=== PATIENT | male | born 1990 | race Caucasian/White ===

== ENCOUNTER 2020-04-03 13:41 | Emergency (ER) | payer MEDICAID ==
[~2020-04-03] VITALS: Ht 167.6 cm; Wt 93.0 kg
[2020-04-03 14:13] VITALS: BP 125/101
--- NOTE | 2020-04-03 14:30 | NUR ---
PT MOVED TO BED 12 VIA W/C.
[2020-04-03] MEDS ORDERED: KETOROLAC 60 MG/2 ML VIAL IM ONE (14:35)
--- NOTE | 2020-04-03 14:35 | NUR ---
Note undone in EDM - 04/03/20 at 1510 by ISAC 29 YO F BIB SELF WITH C/C OF BILATERAL LEG PAIN. PT STATES HE VISITED A CLINIC FOR RIGHT LEG PAIN ON 04/02. PT STATES PAIN WORSEN TODAY AND MOVED TO HANDS AND KNEES. PT STATES PAIN IS 10/10 FOR BILATERAL LEG, HAND, AND KNEES. PEDAL PULSES IN TACT AND CAPILLARY REFILL IMMEDIATE. PT IS COOL TO THE TOUCH TO BILATERAL LOWER EXTREMITIES, HANDS, AND KNEES. PT DENIED CHEST PAIN, SHORTNESS OF BREATH, DIZZINESS, BLURRY VISION, N/V. PT PLACED IN POSITION OF COMFORT. BED LOCKED TO LOWEST POSITION. SIDE RAILS X 2 FOR PT SAFETY. CALL LIGHT WITHIN REACH. PMH: DENSHIRLENE RAMESH MEDS: DENIES
--- NOTE | 2020-04-03 14:35 | NUR ---
29 YO F BIB SELF WITH C/C OF BILATERAL LEG PAIN. PT STATES PAIN STARTED ON 03/31 TO RIGHT LEG. PT REPORTS HE VISITED A CLINIC FOR RIGHT LEG PAIN ON 04/01. PT STATES PAIN WORSEN ON 04/02 AND PROGRESSED TO HIS HANDS AND KNEES. PT STATES PAIN IS 10/10 FOR BILATERAL LEG, HAND, AND KNEES. PEDAL PULSES INTACT AND CAPILLARY REFILL IMMEDIATE. PT IS COOL TO THE TOUCH TO BILATERAL LOWER EXTREMITIES, HANDS, AND KNEES. WARMTH NOTED UPON PALPATION TO BILATERAL FEET. PT DENIES CHEST PAIN, SHORTNESS OF BREATH, DIZZINESS, BLURRY VISION, N/V. PT PLACED IN POSITION OF COMFORT. BED LOCKED TO LOWEST POSITION. SIDE RAILS X 2 FOR PT SAFETY. CALL LIGHT WITHIN REACH. PMH: DENIES NKA MEDS: DENIES
--- NOTE | 2020-04-03 14:37 | NUR ---
ULTRASOUND AT BEDSIDE
[2020-04-03 16:02] VITALS: BP 135/93
--- NOTE | 2020-04-03 16:02 | NUR ---
Patient discharged with v/s stable. Written and verbal after care instructions given and explained. Patient alert, oriented and verbalized understanding of instructions. Wheel Chair Assisted with to car. All questions addressed prior to discharge. ID band removed. Patient advised to follow up with PMD. Rx of Keflex, Motrin, [place] 5mg-325mg Tablet given. Patient educated on indication of medication including possible reaction and side effects. Opportunity to ask questions provided and answered.
== END 2020-04-03 16:02 | disposition home or self-care (01) ==
LOC: MED 13:41
DX: L03.115 Cellulitis of right lower limb (principal); F17.200 Nicotine dependence, unspecified, uncomplicated
CPT/HCPCS: 93971; 96372; 99284; J1885

== ENCOUNTER 2020-04-10 12:49 | Emergency (ER) | payer MEDICAID ==
[~2020-04-10] VITALS: Ht 167.6 cm; Wt 95.3 kg
[2020-04-10 13:09] VITALS: BP 133/87
--- NOTE | 2020-04-10 13:17 | NUR ---
29 Y/M PRESENTS TO ED FOR R CALF PAIN, AND KNEE PAIN. PT WAS SEEN LAST WEEK AND GIVEN STEROIDS, HYDORCODONE AND MOTRIN. PT REPORTS WORSENING PAIN /. DENIES ANY RECENT INJURY OR TRAUMA. PMH- DENIES NKDA
[2020-04-10] MEDS: KETOROLAC 60 MG/2 ML VIAL IM ONE (13:33)
[2020-04-10 14:12] LABS: BASOPHILS % (AUTO) 0.4 % (0.0-2.0); EOSINOPHILS # (AUTO) 0.1 K/uL (0-0.4); EOSINOPHILS % (AUTO) 0.6 % (0.0-4.0); HEMATOCRIT 43.6 % (36-52); HEMOGLOBIN 15.1 g/dL (12.0-18.0); LYMPHOCYTES # (AUTO) 1.1 K/uL (2.0-11.5); LYMPHOCYTES % (AUTO) 11.1 % (20.5-51.1); MEAN CORPUSCULAR HEMOGLOBIN 33 pg (27-31); MEAN CORPUSCULAR HGB CONC 35 g/dL (33-37); MEAN CORPUSCULAR VOLUME 94.2 fL (80-94); MONOCYTES # (AUTO) 0.9 K/uL (0.8-1.0); MONOCYTES % (AUTO) 8.4 % (1.7-9.3); NEUTROPHILS # (AUTO) 8.1 K/uL (1.8-7.7); NEUTROPHILS % (AUTO) 79.5 % (42.2-75.2); PLATELET COUNT (AUTO) 395 K/uL (140-450); RED BLOOD CELL COUNT(AUTO) 4.63 MIL/uL (4.20-6.10); RED CELL DISTRIBUTION WIDTH 12.2 % (11.6-13.7); WHITE BLOOD COUNT (AUTO) 10.1 K/uL (4.8-10.8)
[2020-04-10] MEDS: HYDROcodone/APAP 5/325 MG 1 TAB TAB PO ONE (14:50)
[2020-04-10 15:24] VITALS: BP 133/87
--- NOTE | 2020-04-10 15:24 | NUR ---
Patient discharged with v/s stable. Written and verbal after care instructions given and explained. Patient alert, oriented and verbalized understanding of instructions. Wheel Chair Assisted with to home. All questions addressed prior to discharge. ID band removed. Patient advised to follow up with PMD. Rx of BACTRIM, PREDNISONE, AND TRAMADOL given. Patient educated on indication of medication including possible reaction and side effects. Opportunity to ask questions provided and answered.
== END 2020-04-10 15:24 | disposition home or self-care (01) ==
LOC: MED 12:49
DX: M25.561 Pain in right knee (principal)
CPT/HCPCS: 36415; 84550; 85025; 96372; 99283; J1885

== ENCOUNTER 2020-04-18 12:29 | Emergency (ER) | payer MEDICAID ==
[~2020-04-18] VITALS: Ht 170.2 cm; Wt 81.6 kg
[2020-04-18 12:36] VITALS: BP 115/95
[2020-04-18] MEDS ORDERED: KETOROLAC 30 MG/ML VIAL IM ONE (13:35)
[2020-04-18 14:14] LABS: BASOPHILS # (AUTO) 0.1 K/uL (0.00-0.22); EOSINOPHILS # (AUTO) 0.1 K/uL (0-0.4); EOSINOPHILS % (AUTO) 0.6 % (0.0-4.0); HEMATOCRIT 39.4 % (36-52); HEMOGLOBIN 13.6 g/dL (12.0-18.0); LYMPHOCYTES # (AUTO) 2.1 K/uL (2.0-11.5); LYMPHOCYTES % (AUTO) 18.5 % (20.5-51.1); MEAN CORPUSCULAR HEMOGLOBIN 32 pg (27-31); MEAN CORPUSCULAR HGB CONC 35 g/dL (33-37); MEAN CORPUSCULAR VOLUME 93.7 fL (80-94); MONOCYTES # (AUTO) 1.1 K/uL (0.8-1.0); MONOCYTES % (AUTO) 9.7 % (1.7-9.3); NEUTROPHILS # (AUTO) 7.8 K/uL (1.8-7.7); NEUTROPHILS % (AUTO) 70.2 % (42.2-75.2); PLATELET COUNT (AUTO) 549 K/uL (140-450); RED CELL DISTRIBUTION WIDTH 12.2 % (11.6-13.7); WHITE BLOOD COUNT (AUTO) 11.1 K/uL (4.8-10.8)
[2020-04-18 14:30] LABS: ALBUMIN 3.7 g/dL (3.4-5.0); ANION GAP 9.4 (8-16); CARBON DIOXIDE 29.2 mmol/L (21-32); CREATININE 0.9 mg/dL (0.6-1.3); POTASSIUM 3.6 mmol/L (3.5-5.1); TOTAL BILIRUBIN 0.6 mg/dL (0.0-1.0)
[2020-04-18 15:45] VITALS: BP 120/84
--- NOTE | 2020-04-18 15:45 | NUR ---
EVALUATED, TREATED, AND D/C BY DUC BROWNE.
--- NOTE | 2020-04-18 15:45 | NUR ---
Patient discharged with v/s stable. Written and verbal after care instructions given and explained. Patient alert, oriented and verbalized understanding of instructions. Ambulatory with steady gait. All questions addressed prior to discharge. ID band removed. Patient advised to follow up with PMD. Rx of NORCO, IBUPROFEN given. Patient educated on indication of medication including possible reaction and side effects. Opportunity to ask questions provided and answered.
== END 2020-04-18 15:45 | disposition home or self-care (01) ==
LOC: MED 12:29
DX: M25.561 Pain in right knee (principal); M25.461 Effusion, right knee; R20.8 Other disturbances of skin sensation
CPT/HCPCS: 36415; 73562; 80053; 85025; 85651; 86140; 96372; 99284; J1885

== ENCOUNTER 2021-07-08 12:47 | Emergency (ER) | payer MEDICAID ==
[~2021-07-08] VITALS: Ht 162.6 cm; Wt 95.3 kg
[2021-07-08 12:54] VITALS: BP 140/95
--- NOTE | 2021-07-08 13:03 | NUR ---
PT BIB SELF C/O NOSE PAIN X 1WEEK. S/P MEC FALLING OFF HORSE AND HITTING NOSE. 10 PAIN. NO LOC/KO,PT DENIES N/V/D; SKIN MULTIPLE ABRASIONS TO FACE/NOSE-NO BLEEDING NOTED-PINK/WARM/DRY; AAOX4, PERRL, WITH EVEN AND STEADY GAIT; LUNGS CLEAR BL, BREATHING UNLABORED. PT DENIES ANY FEVER, CP, SOB, OR COUGH AT THIS TIME; VSS; PATIENT POSITIONED FOR COMFORT; HOB ELEVATED; BEDRAILS UP X2; BED DOWN.
--- NOTE | 2021-07-08 13:14 | NUR ---
PT SENT TO XRAY VIA W/C
--- NOTE | 2021-07-08 13:19 | NUR ---
Patient returned from radiology dept via wheel chair.
--- NOTE | 2021-07-08 13:36 | NUR ---
30 Y/O MALE C/O NOSE PAIN X 1WEEK. REPORTS FALLING OFF HORSE AND HITTING NOSE. 7/10 PAIN. NOSE APPEARS CROOKED TO THE RIGHT WITH SLIGHT SWELLING AND BRUISING AROUND THE AREA. MEDHX: DENIES NKA
[2021-07-08] MEDS ORDERED: IBUP-1842 PO (15:27)
[2021-07-08 15:30] VITALS: BP 139/92
--- NOTE | 2021-07-08 15:30 | NUR ---
Patient discharged with v/s stable. Written and verbal after care instructions given and explained. Patient alert, oriented and verbalized understanding of instructions. Ambulatory with steady gait. All questions addressed prior to discharge. ID band removed. Patient advised to follow up with PMD. Rx of IBUPROPHEN given. Patient educated on indication of medication including possible reaction and side effects. Opportunity to ask questions provided and answered.
== END 2021-07-08 15:30 | disposition home or self-care (01) ==
LOC: MED 12:47
DX: S02.2XXA Fracture of nasal bones, initial encounter for closed fracture (principal); Z79.1 Long term (current) use of non-steroidal anti-inflammatories (NSAID); V80.010A Animal-rider injured by fall from or being thrown from horse in noncollision accident, initial encounter; Y93.52 Activity, horseback riding; Y92.89 Other specified places as the place of occurrence of the external cause; Y99.8 Other external cause status
CPT/HCPCS: 70150; 99283

== ENCOUNTER 2022-04-06 21:59 | Emergency (ER) | payer MEDICAID ==
[~2022-04-06] VITALS: Ht 160 cm; Wt 68.0 kg
[~2022-04-06 21:59] MED LIST: IBUP-1842 PO
[2022-04-06 22:27] VITALS: BP 131/82
--- NOTE | 2022-04-06 22:30 | NUR ---
TO LOBBY A/W BED AMBULATORY
[2022-04-07] MEDS ORDERED: IBUPROFEN 600 MG TAB PO ONE (01:00)
[2022-04-07] MEDS ORDERED: NAPR-54 PO (01:44)
[2022-04-07 01:56] VITALS: BP 131/82
--- NOTE | 2022-04-07 01:56 | NUR ---
D/C BY .Patient discharged with v/s stable. Written and verbal after care instructions given and explained. Patient alert, oriented and verbalized understanding of instructions. Ambulatory with steady gait. All questions addressed prior to discharge. ID band removed. Patient advised to follow up with PMD. Rx of NAPROSYN given. Patient educated on indication of medication including possible reaction and side effects. Opportunity to ask questions provided and answered.
== END 2022-04-07 01:56 | disposition home or self-care (01) ==
LOC: MED 21:59
DX: S52.501A Unspecified fracture of the lower end of right radius, initial encounter for closed fracture (principal); W18.30XA Fall on same level, unspecified, initial encounter; Y93.89 Activity, other specified; Y92.89 Other specified places as the place of occurrence of the external cause; Y99.8 Other external cause status
CPT/HCPCS: 73110; 73130; 99284

== ENCOUNTER 2022-04-16 20:37 | Emergency (ER) | payer MEDICAID ==
[~2022-04-16] VITALS: Ht 162.6 cm; Wt 86.2 kg
[~2022-04-16 20:37] MED LIST changes: +NAPR-54 PO
--- NOTE | 2022-04-16 20:58 | NUR ---
TO LOBBY A/W BED AMBULATORY
[2022-04-16] MEDS ORDERED: IBUPROFEN 600 MG TAB PO ONE (23:45)
[2022-04-16] MEDS ORDERED: ACETAMINOPHEN EXTRA STRENGTH 500 MG TAB PO ONE (23:45)
--- NOTE | 2022-04-17 00:10 | NUR ---
ER physician assessing patient.
--- NOTE | 2022-04-17 00:25 | NUR ---
Patient lying in bed, A/Ox4, chest rise and fall symmetrical, no s/s of distress, patient on monitor.
--- NOTE | 2022-04-17 01:07 | NUR ---
internet technology manager applying Sugar-tong splint to patient's right arm. Patient tolerating proceedure well.
[2022-04-17] MEDS ORDERED: ACET-9525 PO (01:54)
[2022-04-17] MEDS ORDERED: NAPR-54 PO (01:54)
[2022-04-17 01:59] VITALS: BP 117/84
== END 2022-04-17 01:59 | disposition home or self-care (01) ==
LOC: MED 20:37
DX: S52.501A Unspecified fracture of the lower end of right radius, initial encounter for closed fracture (principal); Z79.899 Other long term (current) drug therapy; X58.XXXA Exposure to other specified factors, initial encounter; Y93.89 Activity, other specified; Y92.89 Other specified places as the place of occurrence of the external cause; Y99.8 Other external cause status
CPT/HCPCS: 73110; 99283